=== PATIENT | male | born 1990 | race Two or more races ===

== ENCOUNTER 2024-08-03 10:39 | Inpatient (IN) | payer MEDICAID ==
[~2024-08-03] VITALS: Ht 182.9 cm; Wt 113.4 kg
[2024-08-03 14:16] VITALS: BP 104/68; TEMP 97.9; O2SAT 98
[2024-08-03] MEDS ORDERED: ENOXAPARIN SODIUM 40 MG/0.4 ML DISP.SYRIN SQ SCH (15:00)
[2024-08-03 16:00] VITALS: BP_SYST 125; BP_SYST 145; BP_DIAS 74; BP_DIAS 75; TEMP 98.4; TEMP 99; O2SAT 97; O2SAT 98
[2024-08-03] MEDS: IV NS 0.9% 1,000 ML IV PRN (16:49)
[2024-08-03] MEDS: PANTOPRAZOLE 40 MG VIAL IV SCH (16:52)
[2024-08-03] MEDS: CIPROFLOXACIN IV RTU 400 MG in PREMIX 1 EA IV SCH (16:53)
[2024-08-03] MEDS: KETOROLAC TROMETHAMINE 15 MG/ML VIAL IV PRN (16:59)
[2024-08-03 20:00] VITALS: BP 109/63; TEMP 99.5; O2SAT 96
[2024-08-04] VITALS (7 sets, daily range): BP systolic 146–160; BP diastolic 96–104; TEMP 99.5–100.6; O2SAT 95–98
[2024-08-04 06:48] LABS: BASOPHILS % (AUTO) 0.3 % (0.0-2.0); EOSINOPHILS # (AUTO) 0.1 K/uL (0.0-0.7); EOSINOPHILS % (AUTO) 0.5 % (0.0-6.0); HEMATOCRIT 50 % (39-51); HEMOGLOBIN 16.8 g/dL (13.5-17.5); LYMPHOCYTES # (AUTO) 2.4 K/uL (0.8-4.8); LYMPHOCYTES % (AUTO) 15.8 % (20.0-44.0); MEAN CORPUSCULAR HEMOGLOBIN 30 PG (26.0-33.0); MEAN CORPUSCULAR HGB CONC 34 g/dl (31.0-36.0); MEAN CORPUSCULAR VOLUME 88 fL (80-96); MONOCYTES # (AUTO) 1.5 K/uL (0.1-1.30); MONOCYTES % (AUTO) 9.9 % (2.0-12.0); NEUTROPHILS # (AUTO) 11.3 K/uL (1.8-8.9); NEUTROPHILS % (AUTO) 73.5 % (43.0-81.0); PLATELET COUNT (AUTO) 203 K/uL (150-450); RED BLOOD CELL COUNT(AUTO) 5.64 MIL/uL (4.5-6.0); RED CELL DISTRIBUTION WIDTH 13.9 % (11.5-15.0); WHITE BLOOD COUNT (AUTO) 15.3 K/uL (4.3-11.0)
[2024-08-04 06:50] LABS: ALBUMIN 3.4 g/dL (3.4-5.0); BILIRUBIN,DIRECT 0.6 mg/dL (0.0-0.2); CALCIUM, SERUM 8.6 mg/dL (8.5-10.1); MAGNESIUM 2.2 mg/dL (1.8-2.4); POTASSIUM 3.6 mmol/L (3.5-5.1); TOTAL PROTEIN, SERUM 7.1 g/dL (6.4-8.2)
[2024-08-04] MEDS: ONDANSETRON HCL/PF 4 MG/2 ML VIAL IVP PRN (06:50)
[2024-08-04] MEDS: ENOXAPARIN SODIUM 40 MG/0.4 ML DISP.SYRIN SQ SCH (09:30)
[2024-08-04 09:36] LABS: ALBUMIN 3.6 g/dL (3.4-5.0); BILIRUBIN,DIRECT 0.7 mg/dL (0.0-0.2); BILIRUBIN,TOTAL 2.3 mg/dL (0.2-1.0); TOTAL PROTEIN, SERUM 7.3 g/dL (6.4-8.2)
[2024-08-04] MEDS: KETOROLAC TROMETHAMINE 15 MG/ML VIAL IV ONE (12:32)
[2024-08-04] MEDS: HYDROMORPHONE 1 MG/1 ML DISP.SYRIN IV PRN (13:57)
[2024-08-04] MEDS: ACETAMINOPHEN 650 MG/SUPP.RECT RC PRN (23:51)
[2024-08-05] MEDS: IV NS 0.9% 1,000 ML IV PRN (05:27)
[2024-08-05 06:44] LABS: INR 1.15 (0.91-1.10); PARTIAL THROMBOPLASTIN TIME 35.9 SEC (24.3-34.3); PROTHROMBIN TIME 12.1 SECS (9.2-11.1)
[2024-08-05 07:43] LABS: CALCIUM, SERUM 8.9 mg/dL (8.5-10.1); CREATININE 0.8 mg/dL (0.6-1.3); MAGNESIUM 2.2 mg/dL (1.8-2.4); PHOSPHORUS 2.3 mg/dL (2.5-4.9); POTASSIUM 3.9 mmol/L (3.5-5.1)
[2024-08-05 08:00] VITALS: BP 163/107; TEMP 99.7; O2SAT 98
[2024-08-05] MEDS: PIPERACILLIN /TAZOBACTAM 3.375 G in IV D5W 100 ML IV SCH (08:24)
[2024-08-05 09:10] LABS: BASOPHILS # (AUTO) 0.1 K/uL (0.0-0.2); BASOPHILS % (AUTO) 0.4 % (0.0-2.0); HEMATOCRIT 51 % (39-51); HEMOGLOBIN 17.6 g/dL (13.5-17.5); LYMPHOCYTES # (AUTO) 1.8 K/uL (0.8-4.8); LYMPHOCYTES % (AUTO) 7.8 % (20.0-44.0); MEAN CORPUSCULAR HEMOGLOBIN 31 PG (26.0-33.0); MEAN CORPUSCULAR HGB CONC 35 g/dl (31.0-36.0); MEAN CORPUSCULAR VOLUME 89 fL (80-96); MONOCYTES # (AUTO) 2.3 K/uL (0.1-1.30); MONOCYTES % (AUTO) 9.8 % (2.0-12.0); NEUTROPHILS # (AUTO) 18.8 K/uL (1.8-8.9); PLATELET COUNT (AUTO) 203 K/uL (150-450); RED BLOOD CELL COUNT(AUTO) 5.69 MIL/uL (4.5-6.0); WHITE BLOOD COUNT (AUTO) 22.9 K/uL (4.3-11.0)
[2024-08-05 10:33] LABS: ALBUMIN 3.1 g/dL (3.4-5.0); BILIRUBIN,DIRECT 0.9 mg/dL (0.0-0.2); BILIRUBIN,TOTAL 2.5 mg/dL (0.2-1.0); TOTAL PROTEIN, SERUM 7.5 g/dL (6.4-8.2)
[2024-08-05] MEDS ORDERED: FENTANYL PF 250MCG/5ML AMPUL ONE (13:32)
[2024-08-05] MEDS ORDERED: ROCURONIUM BROMIDE 50 MG/5 ML ONE (13:32)
[2024-08-05] MEDS ORDERED: BUPIVACAINE 0.25% 75 MG/30 ML VIAL ONE (13:35)
[2024-08-05] MEDS ORDERED: LABETALOL HCL IV 100MG VIAL ONE (13:49)
[2024-08-05] MEDS ORDERED: CELLULOSE,OXIDIZED 1 EA PACK MC ONE (14:59)
[2024-08-05 16:00] VITALS: BP 146/80; TEMP 98.1; O2SAT 98
[2024-08-05] MEDS: Sodium Phosphate 15 MMOL in IV NS 0.9% 245 ML IV SCH (17:18)
[2024-08-05 20:00] VITALS: BP 132/74; TEMP 98.6; O2SAT 97
[2024-08-05] MEDS ORDERED: ZOSYN IVPB 3.375 G in IV D5W 50ml IV SCH (21:31)
[2024-08-05] MEDS: ACETAMINOPHEN 325 MG TABLET PO PRN (22:04)
[2024-08-06 07:10] LABS: BASOPHILS % (AUTO) 0.2 % (0.0-2.0); EOSINOPHILS % (AUTO) 0.1 % (0.0-6.0); HEMATOCRIT 49 % (39-51); LYMPHOCYTES # (AUTO) 2.1 K/uL (0.8-4.8); LYMPHOCYTES % (AUTO) 14.5 % (20.0-44.0); MEAN CORPUSCULAR HEMOGLOBIN 30 PG (26.0-33.0); MEAN CORPUSCULAR HGB CONC 33 g/dl (31.0-36.0); MEAN CORPUSCULAR VOLUME 93 fL (80-96); MONOCYTES # (AUTO) 1.7 K/uL (0.1-1.30); MONOCYTES % (AUTO) 11.5 % (2.0-12.0); NEUTROPHILS # (AUTO) 10.5 K/uL (1.8-8.9); NEUTROPHILS % (AUTO) 73.7 % (43.0-81.0); PLATELET COUNT (AUTO) 183 K/uL (150-450); RED BLOOD CELL COUNT(AUTO) 5.31 MIL/uL (4.5-6.0); RED CELL DISTRIBUTION WIDTH 13.6 % (11.5-15.0); WHITE BLOOD COUNT (AUTO) 14.3 K/uL (4.3-11.0)
[2024-08-06 07:21] LABS: ALBUMIN 2.7 g/dL (3.4-5.0); BILIRUBIN,DIRECT 0.5 mg/dL (0.0-0.2); BILIRUBIN,TOTAL 2.6 mg/dL (0.2-1.0); TOTAL PROTEIN, SERUM 7.3 g/dL (6.4-8.2)
[2024-08-06 08:00] VITALS: BP 130/76; TEMP 100.9; O2SAT 98
[2024-08-06 08:11] LABS: CALCIUM, SERUM 8.2 mg/dL (8.5-10.1); CREATININE 0.9 mg/dL (0.6-1.3); MAGNESIUM 2.6 mg/dL (1.8-2.4); PHOSPHORUS 2.3 mg/dL (2.5-4.9); POTASSIUM 4.3 mmol/L (3.5-5.1)
[2024-08-06 16:00] VITALS: BP 137/79; TEMP 100.8; O2SAT 97
[2024-08-06] MEDS: K PHOS NEUTRAL 250 MG TABLET PO ONE (17:47)
[2024-08-06 20:56] VITALS: BP 144/87; TEMP 100.2; O2SAT 97
[2024-08-06 21:12] VITALS: BP 144/87; TEMP 100; O2SAT 97
[2024-08-07 00:32] VITALS: TEMP 99.5
[2024-08-07 07:18] LABS: BASOPHILS % (AUTO) 0.3 % (0.0-2.0); EOSINOPHILS # (AUTO) 0.1 K/uL (0.0-0.7); EOSINOPHILS % (AUTO) 1.1 % (0.0-6.0); HEMATOCRIT 46 % (39-51); HEMOGLOBIN 15.2 g/dL (13.5-17.5); LYMPHOCYTES # (AUTO) 1.9 K/uL (0.8-4.8); LYMPHOCYTES % (AUTO) 19.5 % (20.0-44.0); MEAN CORPUSCULAR HEMOGLOBIN 30 PG (26.0-33.0); MEAN CORPUSCULAR HGB CONC 33 g/dl (31.0-36.0); MEAN CORPUSCULAR VOLUME 91 fL (80-96); MONOCYTES # (AUTO) 1.3 K/uL (0.1-1.30); MONOCYTES % (AUTO) 13.4 % (2.0-12.0); NEUTROPHILS # (AUTO) 6.4 K/uL (1.8-8.9); NEUTROPHILS % (AUTO) 65.7 % (43.0-81.0); PLATELET COUNT (AUTO) 195 K/uL (150-450); RED BLOOD CELL COUNT(AUTO) 5.03 MIL/uL (4.5-6.0); RED CELL DISTRIBUTION WIDTH 12.8 % (11.5-15.0); WHITE BLOOD COUNT (AUTO) 9.7 K/uL (4.3-11.0)
[2024-08-07 08:00] VITALS: BP 133/89; TEMP 99.5; O2SAT 97
[2024-08-07 08:14] LABS: ALBUMIN 2.6 g/dL (3.4-5.0); BILIRUBIN,DIRECT 0.6 mg/dL (0.0-0.2); BILIRUBIN,TOTAL 1.2 mg/dL (0.2-1.0); CALCIUM, SERUM 8.3 mg/dL (8.5-10.1); CREATININE 0.9 mg/dL (0.6-1.3); POTASSIUM 3.8 mmol/L (3.5-5.1); TOTAL PROTEIN, SERUM 6.8 g/dL (6.4-8.2)
[2024-08-07 11:56] VITALS: TEMP 98.6
[2024-08-07] MEDS ORDERED: AMOX-430 PO (13:30)
[2024-08-07] MEDS ORDERED: OXYC-128 PO ×3 (13:30→13:41)
== END 2024-08-07 15:22 | disposition home or self-care (01) | DRG 263 ==
LOC: MED 13:22
PROVIDERS: ADMIT Nurse Practitioner Acute Care; ATTEND Nurse Practitioner Acute Care
PROC: 0FT44ZZ Resection of Gallbladder, Percutaneous Endoscopic Approach (ICD-10-PCS; principal; 2024-08-05 14:00)
DX: K81.0 Acute cholecystitis (principal); D68.69 Other thrombophilia; K82.A1 Gangrene of gallbladder in cholecystitis; E66.9 Obesity, unspecified; I10 Essential (primary) hypertension; Z68.33 Body mass index [BMI] 33.0-33.9, adult; E80.6 Other disorders of bilirubin metabolism; D72.829 Elevated white blood cell count, unspecified; R74.01 Elevation of levels of liver transaminase levels
CPT/HCPCS: 36415; 74181-TC; 78226; 80048-TC; 80076-TC; 82962-TC; 83735-TC; 84100-TC; 85025-TC; 85730-TC; 86850-TC; 88304-TC; A4216; A4223; A6403; A9537; A9563; G0378; J0690; J0744; J1171; J1650; J1885; J2405; J2470; J2543; J2704; J3010; J3490; J7030; J7050; J7060